=== PATIENT | female | born 1970 | race Caucasian/White ===

== ENCOUNTER 2019-01-21 20:46 | Emergency (ER) | payer MEDICAID ==
[~2019-01-21] VITALS: Ht 165.1 cm; Wt 88.2 kg
[2019-01-21] MEDS ORDERED: MECLIZINE HCL12.5 MG PO (21:06)
[2019-01-21] MEDS ORDERED: METFORMIN HCL1000 MG PO ×2 (21:06→21:07)
[2019-01-21] MEDS ORDERED: LISINOPRIL20 MG PO (21:07)
[2019-01-21] MEDS ORDERED: TRADJENTA5 MG PO (21:07)
[2019-01-21] MEDS ORDERED: LIPITOR20 MG PO (21:08)
[2019-01-21] MEDS ORDERED: CEPHALEXIN500 MG PO (22:02)
== END 2019-01-21 22:10 | disposition home or self-care (01) ==
LOC: ED 20:46
DX: S91.311A Laceration without foreign body, right foot, initial encounter (principal); E11.9 Type 2 diabetes mellitus without complications; I10 Essential (primary) hypertension; E78.00 Pure hypercholesterolemia, unspecified; Z90.710 Acquired absence of both cervix and uterus; Z88.6 Allergy status to analgesic agent; Z79.84 Long term (current) use of oral hypoglycemic drugs; W26.0XXA Contact with knife, initial encounter
CPT/HCPCS: 73630; 99283

== ENCOUNTER 2021-01-27 22:16 | Emergency (ER) | payer OTHER ==
[~2021-01-27] VITALS: Ht 165.1 cm; Wt 90.0 kg
[~2021-01-27 22:16] MED LIST: CEPHALEXIN500 MG PO; LIPITOR20 MG PO; LISINOPRIL20 MG PO; MECLIZINE HCL12.5 MG PO; METFORMIN HCL1000 MG PO; TRADJENTA5 MG PO
[2021-01-27] MEDS ORDERED: ALLOPURINOL300 MG PO (23:16)
[2021-01-27] MEDS ORDERED: OXYBUTYNIN CHLOR5 MG PO (23:16)
[2021-01-27] MEDS ORDERED: JARDIANCE25 MG PO (23:19)
[2021-01-27] MEDS ORDERED: ADULT ASPIRIN R81 MG PO (23:20)
[2021-01-27] MEDS ORDERED: PIOGLITAZONE HC30 MG PO (23:20)
[2021-01-28] MEDS ORDERED: LIDODERM1 EACH TOP (03:19)
[2021-01-28] MEDS ORDERED: VALIUM10 MG PO (03:19)
[2021-01-28] MEDS ORDERED: MAPAP500 MG PO (03:19)
[2021-01-28] MEDS ORDERED: IBU800 MG PO (03:19)
== END 2021-01-28 03:40 | disposition home or self-care (01) ==
LOC: ED 22:16
DX: M54.5 Low back pain (principal); E11.9 Type 2 diabetes mellitus without complications; I10 Essential (primary) hypertension; E78.00 Pure hypercholesterolemia, unspecified; Z88.8 Allergy status to other drugs, medicaments and biological substances; Z79.899 Other long term (current) drug therapy; Z79.82 Long term (current) use of aspirin; Z79.4 Long term (current) use of insulin
CPT/HCPCS: 99283; A9270

== ENCOUNTER 2023-01-19 17:21 | Emergency (ER) | payer OTHER ==
[~2023-01-19] VITALS: Ht 165.1 cm; Wt 89.8 kg
[~2023-01-19 17:21] MED LIST changes: +ADULT ASPIRIN R81 MG PO; +ALLOPURINOL300 MG PO; +IBU800 MG PO; +JARDIANCE25 MG PO; +LIDODERM1 EACH TOP; +MAPAP500 MG PO; +OXYBUTYNIN CHLOR5 MG PO; +PIOGLITAZONE HC30 MG PO; +VALIUM10 MG PO
[2023-01-19] MEDS ORDERED: PIOGLITAZONE HC45 MG PO (18:05)
[2023-01-19] MEDS ORDERED: ATORVASTATIN CA40 MG PO (18:05)
[2023-01-19] MEDS ORDERED: METFORMIN HCL500 M1 PO (18:06)
[2023-01-19] MEDS ORDERED: ONDANSETRON ODT8 MG PO (19:22)
[2023-01-19] MEDS ORDERED: REGLAN10 MG PO (19:22)
[2023-01-19 20:13] VITALS: BP 111/56
== END 2023-01-19 20:13 | disposition home or self-care (01) ==
LOC: ED 17:21
DX: G43.909 Migraine, unspecified, not intractable, without status migrainosus (principal); E11.9 Type 2 diabetes mellitus without complications; I10 Essential (primary) hypertension; E78.00 Pure hypercholesterolemia, unspecified; Z88.5 Allergy status to narcotic agent; Z88.8 Allergy status to other drugs, medicaments and biological substances; Z79.899 Other long term (current) drug therapy; Z79.82 Long term (current) use of aspirin; Z79.84 Long term (current) use of oral hypoglycemic drugs
CPT/HCPCS: 36415; 80053; 85025; 96374; 96375; 99283-25; J1100; J1200; J1885; J2765; J7030

== ENCOUNTER 2023-07-30 17:43 | Emergency (ER) | payer OTHER ==
[~2023-07-30] VITALS: Ht 165.1 cm; Wt 106.1 kg
[~2023-07-30 17:43] MED LIST changes: +ATORVASTATIN CA40 MG PO; +CELECOXIB200 MG PO; +METFORMIN HCL500 M1 PO; +ONDANSETRON ODT8 MG PO; +OXYCODONE HCL5 MG PO; +PIOGLITAZONE HC45 MG PO; +REGLAN10 MG PO
[2023-07-30 18:26] LABS: BASOPHILS 1.1 % (0-2); HEMATOCRIT 38.9 % (35.0-50.0); MCH 28.6 (27-36); MCHC 33.3 g/dl (30-36); MONOCYTES 7.5 % (0-12); NEUTROPHILS 54.4 % (39-80); PLATELET COUNT 260 K/uL (140-440); RBC 4.53 M/ul (4.3-5.7); RDW 14.9 (10.5-15.0)
[2023-07-30 18:40] LABS: ALBUMIN/GLOBULIN RATIO 1.29 (1.1-2.4); ALKALINE PHOSPHATASE 114 U/L (46-116); ALT (SGPT) 29 U/L (14-59); AST (SGOT) 15 U/L (15-37); BILIRUBIN, TOTAL 0.2 ng/dL (0.2-1.0); BUN/CREATININE RATIO 16.04 (6.0-28.6); CALCIUM 8.8 mg/dL (8.5-10.1); CARBON DIOXIDE 24 mmol/L (21-32); CHLORIDE 104 mmol/L (98-107); CREATININE, SERUM 0.81 mg/dL (0.55-1.02); GLOMERULAR FILTRATION RATE,EST 88 mL/min (>60); MAGNESIUM 1.8 mg/dL (1.8-2.4); PROTEIN, TOTAL 7.1 g/dL (6.4-8.2); UREA NITROGEN 13 mg/dL (7-18)
[2023-07-30] MEDS ORDERED: METOPROLOL SUCC25 MG PO (19:10)
[2023-07-30 19:42] VITALS: BP 150/83
--- NOTE | 2023-07-31 18:24 | EKG ---
[facility] [address] [facility] [place] [address] Signed Normal sinus rhythm Incomplete right bundle branch block Nonspecific ST abnormality Abnormal ECG When compared with ECG of 06-MAR-2023 09:47, No significant change was found Confirmed by JOANNA MONTOYA MD ([id number]) on 07/31/2023 6:24:46 PM Electronically Signed By: JOANNA MONTOYA 07/31/23 1824 PATIENT NAME: HENRYAXELROMERO Electrocardiogram DATE OF : 74 PHYSICIAN: JOANNA MONTOYA REPORT #: [id number] REPORT IS CONFIDENTIAL AND NOT TO BE RELEASED WITHOUT AUTHORIZATION
== END 2023-07-30 19:42 | disposition home or self-care (01) ==
LOC: ED 17:43
PROVIDERS: Emergency Medicine
DX: I49.3 Ventricular premature depolarization (principal); I10 Essential (primary) hypertension; E11.9 Type 2 diabetes mellitus without complications; E78.00 Pure hypercholesterolemia, unspecified; Z79.84 Long term (current) use of oral hypoglycemic drugs; Z79.82 Long term (current) use of aspirin; Z79.899 Other long term (current) drug therapy; Z91.048 Other nonmedicinal substance allergy status; Z88.8 Allergy status to other drugs, medicaments and biological substances; Z88.5 Allergy status to narcotic agent
CPT/HCPCS: 36415; 80053; 83735; 84484; 85025; 93005; 93010

== ENCOUNTER 2024-02-22 02:16 | Emergency (ER) | payer OTHER ==
[~2024-02-22] VITALS: Ht 167.6 cm; Wt 97.6 kg
[~2024-02-22 02:16] MED LIST changes: +METOPROLOL SUCC25 MG PO
[2024-02-22] MEDS ORDERED: KETOROLAC TROMETHAMINE 60 MG/2 ML VIAL IM ONE (02:45)
[2024-02-22] MEDS ORDERED: CELEBREX100 MG PO (03:11)
[2024-02-22 03:35] VITALS: BP 137/87
== END 2024-02-22 03:42 | disposition home or self-care (01) ==
LOC: ED 02:16
DX: S83.92XA Sprain of unspecified site of left knee, initial encounter (principal); E11.9 Type 2 diabetes mellitus without complications; I10 Essential (primary) hypertension; E78.00 Pure hypercholesterolemia, unspecified; G43.909 Migraine, unspecified, not intractable, without status migrainosus; Z86.73 Personal history of transient ischemic attack (TIA), and cerebral infarction without residual deficits; X58.XXXA Exposure to other specified factors, initial encounter; Z79.84 Long term (current) use of oral hypoglycemic drugs; Z79.899 Other long term (current) drug therapy; Z88.5 Allergy status to narcotic agent; Z88.8 Allergy status to other drugs, medicaments and biological substances
CPT/HCPCS: 73560; 99283-25

== ENCOUNTER 2025-07-12 14:55 | Emergency (ER) | payer OTHER ==
[~2025-07-12] VITALS: Ht 167.6 cm; Wt 98.3 kg
[~2025-07-12 14:55] MED LIST changes: +CELEBREX100 MG PO
[2025-07-12] MEDS ORDERED: VENLAFAXINE H37.5 MG PO (15:13)
[2025-07-12] MEDS ORDERED: HYDROmorphone HCL 1 MG/ML SYR IV PRN (16:00)
[2025-07-12 16:14] LABS: RBC, WET MOUNT NEGATIVE (NEGATIVE); SOURCE, WET MOUNT VAGINAL; WBC, WET MOUNT 1+ (NEGATIVE)
[2025-07-12 16:15] LABS: BACTERIA, WET MOUNT 3+ (NEGATIVE); CLUE CELLS, WET MOUNT NEGATIVE (NEGATIVE); EPITHELIAL CELLS, WET MOUNT 3+ (NEGATIVE); TRICHOMONAS, WET MOUNT NEGATIVE (NEGATIVE); YEAST, WET MOUNT POSITIVE (NEGATIVE)
[2025-07-12 16:19] LABS: BLOOD/HGB, URINE NEGATIVE (Negative); KETONE, URINE NEGATIVE (Negative); LEUK ESTERASE, URINE NEGATIVE (negative); NITRITE, URINE POSITIVE (negative)
[2025-07-12 16:21] LABS: BASOPHILS 0.6 % (0.1-1.2); EOSINOPHILS 2.3 % (0.7-5.8); LYMPHOCYTES 27.1 % (19.3-51.7); MCH 27.7 PG (25.6-32.2); MCHC 32.3 g/dL (32.2-35.5); MCV 85.8 fL (79.4-94.8); MONOCYTES 6.3 % (4.7-12.5); NEUTROPHILS 63.0 % (34.0-71.1); RBC 4.37 M/uL (3.93-5.22)
[2025-07-12 16:25] LABS: BACTERIA, URINE RARE /hpf (negative); CASTS, URINE NONE SEEN \\lpf; CRYSTALS, URINE NONE SEEN (0-1+); REFLEX CULTURE, URINE No (No)
[2025-07-12 16:36] LABS: ALT (SGPT) 30.0 U/L (14-59); AST (SGOT) 24.0 U/L (15-37); GLOMERULAR FILTRATION RATE,EST 65.0 mL/min (>60); PROTEIN, TOTAL 7.7 g/dL (6.4-8.2); UREA NITROGEN 22.0 mg/dL (7-18)
[2025-07-12 17:46] LABS: N. GONORRRHOEAE BY PCR NOT DETECTED (NOT DETECT)
[2025-07-12] MEDS ORDERED: FLUCONAZOLE 200 MG TAB PO ONE (18:00)
[2025-07-12 18:05] VITALS: BP 117/65
[2025-07-16 12:17] LABS: HSV SUBTYPE SOURCE Genital (())
== END 2025-07-12 18:05 | disposition home or self-care (01) ==
LOC: ED 14:55
PROVIDERS: Emergency Medicine
DX: R10.20 Pelvic and perineal pain unspecified side (principal); M54.50 Low back pain, unspecified; E11.9 Type 2 diabetes mellitus without complications; I10 Essential (primary) hypertension; Z88.5 Allergy status to narcotic agent; Z88.8 Allergy status to other drugs, medicaments and biological substances
CPT/HCPCS: 36415; 74177; 80053; 81001; 85025; 87210; 87491; 87529; 99284-25; Q9967

== ENCOUNTER 2025-08-14 10:52 | Day surgery (SDC) | payer OTHER ==
[~2025-08-14] VITALS: Ht 167.6 cm; Wt 96.0 kg
[~2025-08-14 10:52] MED LIST changes: +IBLOOD GLUCOSE TEST STRIP 1 EA TEST VI PRN; +LACTATED RINGER'S 1,000 ML IV SCH; +LIDOCAINE HCL 1% 5 ML SDV INJ ONE; +LIDOCAINE HCL 2% 5 ML SDV ONE; +RYBELSUS14 MG PO; +VENLAFAXINE H37.5 MG PO
[2025-08-14 11:37] VITALS: BP 118/63
--- NOTE | 2025-08-14 15:18 | NUR ---
08/14/25 1518 Puja Renner 1508 PT ARRIVED TO PACU ON 6L VIA MASK, ASLEEP AND RESP EVEN AND UNLABORED. PT SITTING IN HIGH FOLWERS ON HER LEFT SIDE. 1511 PT WAKES TO TACTILE STIMULI AND O2 REMOVED. PT DENIES CONCERNS. ICE PACK PLACED ON HER HEAD PER REQUEST. PT PASSING GAS OFF AND ON AND ENCOURAGED TO DO SO.
[2025-08-14 15:35] VITALS: BP 116/68
--- NOTE | 2025-08-15 08:29 | OR ---
[facility] [address] [facility] [place] [address] Signed DATE OF OPERATION: 08/14/2025 SURGEON: Eduardo Celeste DO PREOPERATIVE DIAGNOSIS: Colon cancer screening. POSTOPERATIVE DIAGNOSIS: Colon cancer screening with colon polyp at 25 cm. PROCEDURE PERFORMED: Colonoscopy with cold forceps polypectomy at 25 cm. ANESTHESIA: IV sedation. ESTIMATED BLOOD LOSS: None. DRAINS: None. COMPLICATIONS: None. DESCRIPTION OF PROCEDURE: The patient was brought to the GI lab and placed in the supine position. After induction of IV sedation, the patient was then placed in the left lateral position and padded to the satisfaction of anesthesia. The Olympus video colonoscope was then introduced into the rectum and while insufflating and under direct visualization, the scope was advanced through the rectosigmoid, sigmoid colon, descending colon, transverse colon, ascending colon into the cecum. The colon was insufflated and mucosal surface was evaluated. The ascending colon to cecum had no intrinsic or extrinsic masses. No lesions or ulcerations were noted. Scope was brought back past the hepatic flexure into the transverse colon, no intrinsic or extrinsic masses, no lesions or ulceration were appreciated. The scope was brought back into the descending colon. No intrinsic or extrinsic masses, no lesions or ulcerations were noted. Scope was brought back into the sigmoid colon. At approximately 25 cm flat broad-based polyp was identified. Polypectomy was then carried out with cold forceps. The specimen was passed off the field for pathologic review. Remainder of the sigmoid was essentially unremarkable. Electronically Signed By: EDUARDO CELESTE DO 08/15/25 0829 PATIENT NAME: ROMERO FISCHER OPERATIVE REPORT DATE OF : 74 REPORT #: [id number] PHYSICIAN: EDUARDO CELESTE DO PCP: SUSY ANDERSON MD REPORT IS CONFIDENTIAL AND NOT TO BE RELEASED WITHOUT AUTHORIZATION [address] [place], [place] [address] Signed Rectosigmoid was essentially unremarkable. The scope was withdrawn. The patient tolerated the procedure well and to recovery room in satisfactory condition. Eduardo Celeste DO RS/MODL /[id number] Copies: ~ Electronically Signed By: EDUARDO CELESTE DO 08/15/25 0829 PATIENT NAME: ROMERO FISCHER OPERATIVE REPORT DATE OF : 74 REPORT #: [id number] PHYSICIAN: EDUARDO CELESTE DO PCP: SUSY ANDERSON MD REPORT IS CONFIDENTIAL AND NOT TO BE RELEASED WITHOUT AUTHORIZATION
--- NOTE | 2025-08-15 22:26 | EKG ---
[facility] [address] [facility] [place] [address] Signed Normal sinus rhythm Incomplete right bundle branch block Nonspecific T wave abnormality Abnormal ECG When compared with ECG of 30-JUL-2023 17:49, No significant change was found Confirmed by Lupis Andrade MD () on 08/15/2025 10:26:28 PM Electronically Signed By: LUPIS ANDRADE MD 08/15/25 2226 PATIENT NAME: TRAYSHAHNAZROMEROMARIS ABBOTT Electrocardiogram DATE OF : 74 PHYSICIAN: LUPIS ANDRADE MD REPORT #: [id number] REPORT IS CONFIDENTIAL AND NOT TO BE RELEASED WITHOUT AUTHORIZATION
--- NOTE | 2025-08-16 22:37 | PATH ---
[facility] [address] [facility] [place], [place] [address] Signed SPECIMEN(S): A COLON POLYP AT 25 CM SPECIMEN SOURCE: A. COLON POLYP AT 25 CM CLINICAL HISTORY: Screening A) polyp FINAL PATHOLOGIC DIAGNOSIS: Colon polyp at 25 cm: - Hyperplastic polyp. JVR MICROSCOPIC EXAMINATION: Histologic sections of all submitted blocks are examined by light microscopy. These findings, together with the gross examination, support the pathologic diagnosis. GROSS DESCRIPTION: The specimen, labeled and designated "César colon polyp at 25 cm," is received in formalin and consists of one gordon soft tissue fragment, 0.3 cm. Entirely submitted in (A1). AB (under the direct supervision of a pathologist) The Gross Description was prepared using a voice recognition system. The report was reviewed for accuracy; however, sound-alike word errors, addition and/or deletions may occur. If there is any question about this report, please contact Client Services. ADDITIONAL NOTES: Immunohistochemical and/or in situ hybridization studies if performed in this case included appropriate positive controls that reacted as expected. This test was developed and its performance characteristics determined by [facility]. It has not been cleared or approved by the U.S. Food and Drug Administration. The FDA has determined that such clearance or approval is not necessary. This test is used for clinical purposes. It should not be regarded as investigational or for research. [facility] is certified under the Clinical Laboratory Improvement Amendments of 1988 (CLIA) as qualified to perform high complexity clinical laboratory testing. PATIENT NAME: BROROMERO CHRISTIE PATHOLOGY DATE OF : 74 REPORT #: [id number] PHYSICIAN: YUMIKO BURNS PCP: SUSY ANDERSON MD REPORT IS CONFIDENTIAL AND NOT TO BE RELEASED WITHOUT AUTHORIZATION [facility] [address] [facility] [place] [address] Signed PERFORMING LABORATORY: Technical component was performed by [facility], [address] [place] [id number] (CLIA# [id number]). Professional interpretation was performed by [facility] - [address] [place] [address] [place] [address] (CLIA#: [id number]). Diagnostician: Hawk Farnsworth MD Pathologist Electronically Signed 08/16/2025 Copies: ~ PATIENT NAME: ROMERO FISCHER PATHOLOGY DATE OF : 74 REPORT #: [id number] PHYSICIAN: YUMIKO BURNS PCP: SUSY ANDERSON MD REPORT IS CONFIDENTIAL AND NOT TO BE RELEASED WITHOUT AUTHORIZATION
== END 2025-08-14 15:58 ==
LOC: DS 10:52 → OPS 10:52 → DS 12:05 → OPS 15:58
PROVIDERS: ATTEND Surgery
PROC: 0DBN8ZX Excision of Sigmoid Colon, Via Natural or Artificial Opening Endoscopic, Diagnostic (ICD-10-PCS; principal; 2025-08-14 12:05)
DX: Z12.11 Encounter for screening for malignant neoplasm of colon (principal); K63.5 Polyp of colon; E11.9 Type 2 diabetes mellitus without complications; I10 Essential (primary) hypertension; E78.5 Hyperlipidemia, unspecified; Z88.8 Allergy status to other drugs, medicaments and biological substances
CPT/HCPCS: 00811; 88305; 93005; 93010; J2003; J2704; J7121